=== PATIENT | male | born 2000 | race African-American/Black ===

== ENCOUNTER 2023-05-11 17:34 | Emergency (ER) | payer OTHER ==
[2023-05-11 17:46] VITALS: BP 118/66; PULSE 71; RESP 18; TEMP 98.4; BMI 21.7
[2023-05-11] MEDS ORDERED: TETRACAINE 0.5% OPHTH SOLN 2 ML BOTTLE OD ONE (18:08)
[2023-05-11] MEDS ORDERED: FLUORESCEIN NA 1 EA STRIP OD ONE (18:09)
[2023-05-11] MEDS ORDERED: FLUORESCEIN NA 1 EA STRIP ONE (18:10)
[2023-05-11] MEDS ORDERED: TETRACAINE 0.5% OPHTH SOLN 2 ML BOTTLE ONE (18:11)
== END 2023-05-11 18:35 | disposition home or self-care (01) ==
LOC: JERFT 17:34
DX: S05.02XA Injury of conjunctiva and corneal abrasion without foreign body, left eye, initial encounter (principal); H57.12 Ocular pain, left eye; H57.89 Other specified disorders of eye and adnexa; H53.8 Other visual disturbances; W50.0XXA Accidental hit or strike by another person, initial encounter
CPT/HCPCS: 99283-25